=== PATIENT | male | born 2000 | race Caucasian/White ===

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

== ENCOUNTER 2021-04-01 21:48 | Emergency (ER) | payer OTHER, SELFPAY ==
[2020-05-20 07:36] VITALS: BMI 39.6
[2021-04-01 21:48] VITALS: BP 176/89; PULSE 76; RESP 16; TEMP 36.1; O2SAT 99; BMI 36.9
[2021-04-01 23:29] LABS: Absolute Lymphocyte Count 2.35 X10^3/uL (0.83-4.51); Absolute Neutrophil Count 7.4 X10^3/uL (2.0-7.7); Basophil# 0.03 X10^3/uL; Basophil% 0.3 % (0-1); Eosinophil# 0.22 X10^3/uL; Hematocrit 44.8 % (40-54); Hemoglobin 15.1 g/dL (13.0-16.5); Lymphocyte # 2.35 X10^3/ul (0.83-4.51); Lymphocyte % 21.5 % (19-41); Mean Corp Hgb Conc 33.7 g/dL (32-36); Mean Corpuscular Hgb 31.7 pg (27.0-32.0); Mean Corpuscular Volume 93.9 fL (80-94); Mean Platelet Vol. 10.4 fl (6.2-12.0); Monocyte# 0.89 X10^3/uL; Monocyte% 8.2 % (0-10); NRBC Flagged by Analyzer 0 % (0-5); Neutrophil % 67.7 % (47-70); Platelet Count 264 K/mm3 (150-450); RBC Distribution Width SD 41.9 fl (35.1-43.9); Red Blood Count 4.77 M/mm3 (4.6-6.2); White Blood Count 10.9 K/mm3 (4.4-11.0)
[2021-04-01 23:45] LABS: Anion Gap 6 (5-15); BUN 16 mg/dL (7-18); Calcium,Total 9.5 mg/dL (8.5-10.1); Chloride 104 mmol/L (98-107); Creatinine, Serum 1.33 mg/dL (0.70-1.30); EST Glomerular Filtration Rate 73 mL/min (>60); Est Glom Filt Rate - Afr Amer 88 mL/min (>60); Estimated Creatinine Clearance 100.96 ml/min; Glucose 101 mg/dL (74-106); Potassium 3.7 mmol/L (3.5-5.1); Sodium Level 140 mmol/L (136-145)
[2021-04-01 23:49] LABS: Lactic Acid 1.1 mmol/L (0.4-1.9)
--- NOTE | 2021-04-01 23:54 | EDS_ITS ---
HPI History of Present Illness Chief Complaint: Cellulitis Informant: patient and spouse/S.O. Onset/Context/Timing Onset: Yesterday Current Severity: Mild Maximum Severity: Mild Narrative Narrative: Patient presents secondary to concern for cellulitis of his right calf. Patient states he noted a sore red area there yesterday. This morning he outlined the area with a marking pen and tonight it has expanded beyond the marked lines. Patient states he has been treated for cellulitis twice in the past and did require IV antibiotics. He reports he did test positive for MRSA. He states the first time he was treated with just clindamycin and got well. The second time he was treated with clindamycin plus Keflex and got well. He denies fever or chills. No other constitutional symptoms. [facility] Medical History Asthma History of cellulitis Seasonal allergies Home Medications albuterol sulfate 90 mcg/actuation aerosol inhaler 2 puff INHALATION Q4H PRN #18 g 05/20/20 [Rx Last Taken Unknown] cetirizine 10 mg capsule 10 mg PO QDAY #30 cap 05/20/20 [Rx Last Taken Unknown] fluticasone furoate 200 mcg-vilanterol 25 mcg/dose inhalation powder 1 inh INHALATION QDAY #60 ea 05/20/20 [Rx Last Taken Unknown] fluticasone propionate 50 mcg/actuation nasal spray,suspension 2 spray INTRANASAL DAILY #16 g 05/20/20 [Rx Last Taken Unknown] cephalexin 500 mg PO Q6 #40 cap 04/02/21 [Rx Last Taken Unknown] clindamycin HCl 300 mg PO 4X/DAY #80 cap 04/02/21 [Rx Last Taken Unknown] Allergy/AdvReac Type Severity Reaction Status Date / Time No Known Allergies Allergy Verified 04/01/21 21:49 Family History Mother Asthma Grandmother Diabetes Grandfather Heart disease Social History Smoking Status: Never smoker second hand exposure: No alcohol intake: never substance use type: does not use caffeine: Yes what type of physical activity do you participate in: other frequency: 5-6 times per week ROS ROS ED Constitutional Constitutional ED: Denies chills or fever(s) Eyes Eyes: Denies change in vision ENT ENT ED: Denies sore throat Cardiovascular Cardiovascular: Denies chest pain Respiratory/Chest Respiratory/Chest: Denies cough or dyspnea Gastrointestinal Gastrointestinal: Denies abdominal pain, diarrhea, nausea or vomiting Genitourinary Genitourinary ED: Denies dysuria Musculoskeletal Musculoskeletal: Denies back pain Integumentary Reports other Details: Cellulitis right posterior calf Neurologic Neurologic: Denies headache(s) or weakness Psychiatric Psychiatric: Denies anxiety or depression Endocrine Endocrinology: Denies polydipsia or polyuria Allergic/Immunologic Allergic/Immunologic ED: Denies urticaria EXAM Physical Exam Const Vital Signs: 04/01/21 21:48 Temperature 96.9 F L Temperature Source Temporal Pulse Rate 76 Respiratory Rate 16 Blood Pressure 176/89 H Blood Pressure Mean 118 Pulse Ox 99 Positive well nourished and well developed General Appearance ED: well developed HEENT Reports normocephalic and head/scalp atraumatic Eyes PERRL and EOMs intact bilaterally Neck supple Chest Wall inspection of chest normal and palpation of chest normal Resp normal respiratory effort and clear to auscultation bilaterally Cardio regular rate and regular rhythm GI normal to inspection, nondistended, normoactive bowel sounds Palpation: soft Extremity Extremity Narrative: Area of erythema consistent with cellulitis in the posterio r right calf. Area is outlined with a surgical marker at this time. Area of erythema measures 9 cm in diameter. Neuro oriented x3 and no sensory deficits noted Sensorium / Orientation: alert Motor Exam: strength 5/5 throughout Psych mental status grossly normal Skin Skin Narrative: As above MDM MDM MDM Narrative Medical decision making narrative: Blood work, blood cultures were obtained. Area of erythema is outlined with a surgical marker. Patient is given a dose of IV vancomycin. Lab Data Attestation: I reviewed the patient's lab results. Labs: Laboratory Results - last 24 hr 04/01/21 04/01/21 04/01/21 23:05 23:05 23:05 WBC 10.9 RBC 4.77 Hgb 15.1 Hct 44.8 MCV 93.9 MCH 31.7 MCHC 33.7 RDW Std Deviation 41.9 RDW Coeff of Lisseth 12.0 Plt Count 264 MPV 10.4 Immature Gran % (Auto) 0.300 Neut % (Auto) 67.7 Lymph % (Auto) 21.5 Desha % (Auto) 8.2 Eos % (Auto) 2.0 Baso % (Auto) 0.3 Absolute Neuts (auto) 7.4 Absolute Lymphs (auto) 2.35 Nucleated RBC % 0 Sodium 140 Potassium 3.7 Chloride 104 Carbon Dioxide 30.0 Anion Gap 6 BUN 16 Creatinine 1.33 H Estim Creat Clear Calc 100.96 Est GFR (MDRD) Af Amer 88 Est GFR (MDRD) Non-Af 73 BUN/Creatinine Ratio 12.0 Glucose 101 Lactic Acid 1.1 Calcium 9.5 Treatment and Re-Evaluation Comments:: Repeat evaluation patient is resting comfortably. Blood work is unremarkable at this time. Blood cultures have been sent. Patient states his last infection was treated with clindamycin and Keflex and he will be treated with the same again. Prescriptions will be sent to the pharmacy for him. Return instructions have been provided. Discharge Plan Triage Chief Complaint: Cellulitis ED Provider: Gunjan Boyer Dx/Rx/DC Orders Clinical Impression: Cellulitis Instructions: Cellulitis Prescriptions: New clindamycin HCl 150 MG capsule 300 mg PO 4X/DAY Qty: 80 RF: 0 cephalexin 500 mg capsule 500 mg PO Q6 Qty: 40 RF: 0 No Action fluticasone propionate 50 mcg/actuation spray,suspension 2 spray INTRANASAL DAILY Qty: 16 RF: 11 Breo Ellipta 200-25 mcg/dose blister with device 1 inh INHALATION QDAY Qty: 60 RF: 11 Zyrtec 10 mg capsule 10 mg PO QDAY Qty: 30 RF: 11 albuterol sulfate [ProAir HFA] 90 mcg/actuation HFA aerosol inhaler 2 puff INHALATION Q4H PRN (Reason: shortness of breath or wheezing) Qty: 18 RF: 11 Stand Alone Forms: ED Work / School Excuse Primary Care Provider: Care Physician,No Primary Referrals: Solo Lewis MD [STAFF PHYSICIAN] - 1-2 Weeks Care Physician,No Primary [Primary Care Provider] - Disposition Disposition: Home, Self Care
[2021-04-02 00:21] VITALS: BP 150/70; PULSE 90; RESP 18; TEMP 37.2; O2SAT 97
[2021-04-02 02:29] VITALS: BP 145/78; PULSE 86; RESP 16; O2SAT 99
== END 2021-04-02 02:30 | disposition home or self-care (01) ==
PROVIDERS: Emergency Provider Emergency Medicine
DX: L03.115 Cellulitis of right lower limb (principal); J45.909 Unspecified asthma, uncomplicated; Z79.899 Other long term (current) drug therapy
CPT/HCPCS: 80048; 83605; 85025; 87040; 96365; 96366; 99283; J7040; J7050; A4216

== ENCOUNTER 2021-04-04 22:50 | Emergency (ER) | payer OTHER, SELFPAY ==
[2021-04-04 22:51] VITALS: BP 156/69; PULSE 70; RESP 16; TEMP 36.8; O2SAT 97; BMI 38.0
[2021-04-04 22:52] VITALS: BP 156/69; PULSE 70; RESP 16; TEMP 36.8; O2SAT 97
--- NOTE | 2021-04-04 23:17 | EX.ED.DYSGE1 ---
HPI History of Present Illness Chief Complaint: Cellulitis Informant: patient and spouse/S.O. Onset/Context/Timing Onset: Today Context: Sudden Onset Timing: Continuous Quality: Cellulitis posterior right leg/calf Current Severity: Mild Maximum Severity: Mild Worsened by: Nothing per patient. He states his been compliant with antibiotics Relieved by: Nothing Associated Symptoms Associated Symptoms: No associated symptoms Narrative Prior similar symptoms: Yes Recent Illness/Hospitalization: Yes (Patient was seen on and treated with cephalexin and clindamycin) [facility] Medical History Asthma History of cellulitis Seasonal allergies Home Medications albuterol sulfate 90 mcg/actuation aerosol inhaler 2 puff INHALATION Q4H PRN #18 g 05/20/20 [Rx Last Taken Unknown] cetirizine 10 mg capsule 10 mg PO QDAY #30 cap 05/20/20 [Rx Last Taken Unknown] fluticasone furoate 200 mcg-vilanterol 25 mcg/dose inhalation powder 1 inh INHALATION QDAY #60 ea 05/20/20 [Rx Last Taken Unknown] fluticasone propionate 50 mcg/actuation nasal spray,suspension 2 spray INTRANASAL DAILY #16 g 05/20/20 [Rx Last Taken Unknown] cephalexin 500 mg PO Q6 #40 cap 04/02/21 [Rx Last Taken Unknown] clindamycin HCl 300 mg PO 4X/DAY #80 cap 04/02/21 [Rx Last Taken Unknown] doxycycline monohydrate 100 mg PO BID #14 capsule 04/05/21 [Rx Last Taken Unknown] Allergy/AdvReac Type Severity Reaction Status Date / Time No Known Allergies Allergy Verified 04/01/21 21:49 Family History Mother Asthma Grandmother Diabetes Grandfather Heart disease Social History (Updated 04/04/21 @ 23:[address] Kyree Thornton MD) household members: significant other Smoking Status: Never smoker second hand exposure: No alcohol intake: never substance use type: does not use caffeine: Yes what type of physical activity do you participate in: other frequency: 5-6 times per week ROS ROS ED Constitutional Constitutional ED: Denies chills, fever(s), subjective, sweats or weight loss Eyes Eyes: Denies blurry vision or change in vision ENT ENT ED: Denies rhinorrhea or sore throat Cardiovascular Cardiovascular: Reports other Details: He denies atraumatic fever, heart murmur, SBE or being immune suppressed. ; Denies chest pain or palpitations Respiratory/Chest Respiratory/Chest: Denies cough or dyspnea Gastrointestinal Gastrointestinal: Denies nausea or vomiting Integumentary Reports rash; Denies abscess Neurologic Neurologic: Denies paresthesias or weakness Allergic/Immunologic Allergic/Immunologic ED: Denies mouth swelling, tongue swelling or urticaria EXAM Physical Exam Const Vital Signs: 04/04/21 22:51 04/04/21 22:52 Temperature 98.2 F 98.2 F Temperature Source Temporal Temporal Pulse Rate 70 70 Respiratory Rate 16 16 Blood Pressure 156/69 H 156/69 H Blood Pressure Mean 98 98 Pulse Ox 97 97 Oxygen Delivery Method Room Air Room Air Positive well nourished and well developed General Appearance ED: well developed and NAD HEENT Reports moist mucous membranes HEENT Narrative: Symmetric. Nares patent. Ears are normal. Eyes PERRL and EOMs intact bilaterally General Eye ED: Negative for pale conjunctiva or scleral icterus Neck no lymphadenopathy, supple and no JVD Chest Wall inspection of chest normal Resp normal respiratory effort and clear to auscultation bilaterally Cardio regular rate, S1 normal heart sound, S2 normal heart sound and no murmurs Extremity Negative for normal to inspection Extremity Narrative: There is cellulitis involving the right posterior leg. Patient states the rash was improving markedly. Since this morning it has spread and involve the entire posterior right leg. There is no fluctuance. There is no popliteal or inguinal lymphadenopathy. There is no induration. The area is slightly warm compared to uninvolved extremity. General Extremety ED: Negative for edema or tenderness General Extremity: Negative for edema Neuro oriented x3, CN's II-XII intact bilaterally and no sensory deficits noted Sensorium / Orientation: alert Psych mental status grossly normal Skin Rashes: rashes noted Erythematous warm blanching rash without induration or fluctuance. 15 Posterior right leg erythematous oval Yes soft dry nontender MDM MDM MDM Narrative Medical decision making narrative: Suspect person has MRSA and is resistant to clindamycin. Will obtain baseline blood work and reassess. Lab Data Attestation: I reviewed the patient's lab results. Lab results narrative: CBC and differential unremarkable. Electrolyte panel is unremarkable. Lactate is normal. 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 2 to 3% of meth resistant staph or his infections are resistant to clindamycin. Suspect since he initially improved this is the cause. Since he has no sirs criteria he is a candidate for appropriate outpatient therapy. Labs: Laboratory Results - last 24 hr 04/04/21 04/04/21 04/04/21 23:14 23:14 23:14 WBC 7.9 RBC 4.54 L Hgb 14.3 Hct 42.8 MCV 94.3 H MCH 31.5 MCHC 33.4 RDW Std Deviation 41.1 RDW Coeff of Lisseth 11.9 Plt Count 255 MPV 10.3 Immature Gran % (Auto) 1.400 H Neut % (Auto) 57.8 Lymph % (Auto) 28.2 [place] % (Auto) 9.9 Eos % (Auto) 2.3 Baso % (Auto) 0.4 Absolute Neuts (auto) 4.6 Absolute Lymphs (auto) 2.24 Nucleated RBC % 0 Sodium 140 Potassium 3.9 Chloride 105 Carbon Dioxide 29.0 Anion Gap 6 BUN 15 Creatinine 1.29 Estim Creat Clear Calc 101.09 Est GFR (MDRD) Af Amer 91 Est GFR (MDRD) Non-Af 76 BUN/Creatinine Ratio 11.6 Glucose 90 Lactic Acid 0.7 Calcium 9.2 Discharge Plan Triage Chief Complaint: Cellulitis ED Provider: Kyree Thornton Dx/Rx/DC Orders Clinical Impression: Cellulitis of right leg without foot Prescriptions: New doxycycline monohydrate 100 MG capsule 100 mg PO BID Qty: 14 RF: 0 No Action fluticasone propionate 50 mcg/actuation spray,suspension 2 spray INTRANASAL DAILY Qty: 16 RF: 11 Breo Ellipta 200-25 mcg/dose blister with device 1 inh INHALATION QDAY Qty: 60 RF: 11 Zyrtec 10 mg capsule 10 mg PO QDAY Qty: 30 RF: 11 albuterol sulfate [ProAir HFA] 90 mcg/actuation HFA aerosol inhaler 2 puff INHALATION Q4H PRN (Reason: shortness of breath or wheezing) Qty: 18 RF: 11 clindamycin HCl 150 MG capsule 300 mg PO 4X/DAY Qty: 80 RF: 0 cephalexin 500 mg capsule 500 mg PO Q6 Qty: 40 RF: 0 Primary Care Provider: Care Physician,No Primary Referrals: Solo Lewis MD [STAFF PHYSICIAN] - 2 Days for wound check Care Physician,No Primary [Primary Care Provider] - Disposition Disposition: Home, Self Care
[2021-04-04 23:37] LABS: Absolute Lymphocyte Count 2.24 X10^3/uL (0.83-4.51); Absolute Neutrophil Count 4.6 X10^3/uL (2.0-7.7); Basophil# 0.03 X10^3/uL; Basophil% 0.4 % (0-1); Eosinophil# 0.18 X10^3/uL; Eosinophils% 2.3 % (0-5); Hematocrit 42.8 % (40-54); Hemoglobin 14.3 g/dL (13.0-16.5); Lymphocyte # 2.24 X10^3/ul (0.83-4.51); Lymphocyte % 28.2 % (19-41); Mean Corp Hgb Conc 33.4 g/dL (32-36); Mean Corpuscular Hgb 31.5 pg (27.0-32.0); Mean Corpuscular Volume 94.3 fL (80-94); Mean Platelet Vol. 10.3 fl (6.2-12.0); Monocyte# 0.79 X10^3/uL; Monocyte% 9.9 % (0-10); NRBC Flagged by Analyzer 0 % (0-5); Neutrophil # 4.59 X10^3/uL (2.7-7.7); Neutrophil % 57.8 % (47-70); Platelet Count 255 K/mm3 (150-450); RBC Distribution Width CV 11.9 % (11.6-14.6); RBC Distribution Width SD 41.1 fl (35.1-43.9); Red Blood Count 4.54 M/mm3 (4.6-6.2); White Blood Count 7.9 K/mm3 (4.4-11.0)
[2021-04-04 23:47] LABS: Anion Gap 6 (5-15); BUN 15 mg/dL (7-18); BUN/Creat Ratio 11.6 RATIO (10-20); Calcium,Total 9.2 mg/dL (8.5-10.1); Chloride 105 mmol/L (98-107); Creatinine, Serum 1.29 mg/dL (0.70-1.30); EST Glomerular Filtration Rate 76 mL/min (>60); Est Glom Filt Rate - Afr Amer 91 mL/min (>60); Estimated Creatinine Clearance 101.09 ml/min; Glucose 90 mg/dL (74-106); Potassium 3.9 mmol/L (3.5-5.1); Sodium Level 140 mmol/L (136-145)
[2021-04-04 23:50] LABS: Lactic Acid 0.7 mmol/L (0.4-1.9)
[2021-04-05] MEDS: Doxycycline 100 MG CAPSULE PO (00:30)
[2021-04-05 00:40] VITALS: RESP 14
== END 2021-04-05 00:45 | disposition home or self-care (01) ==
PROVIDERS: Emergency Provider Emergency Medicine
DX: L03.115 Cellulitis of right lower limb (principal); J45.909 Unspecified asthma, uncomplicated; Z79.899 Other long term (current) drug therapy
CPT/HCPCS: 80048; 83605; 85025; 99284; A4216

== ENCOUNTER → 2022-05-24 | Outpatient (CLI) | payer OTHER, SELFPAY | END | disposition home or self-care (01) | LOC: LABSPEC 10:40 | PROVIDERS: Referring Provider Dermatology; Visit Provider Dermatology | DX: L05.91 Pilonidal cyst without abscess (principal) | CPT/HCPCS: 87070; 87077; 87186; 87205 ==

== ENCOUNTER 2022-10-06 09:27 | Day surgery (SDC) | payer OTHER, SELFPAY ==
[2022-10-06] VITALS (13 sets, daily range): BP systolic 104–140; BP diastolic 56–79; PULSE 73–88; RESP 16–20; TEMP 36.6–37.3; O2SAT 96–100; BMI 34.2
--- NOTE | 2022-10-06 10:08 | PCM.HP.STD ---
HPI - General HPI Narrative TYLOR ANDREA, is a 22 M who presents for left inguinal hernia repair. The patient was seen in June and there were no changes since then. He still complaining of left inguinal hernia. [facility] Medical History (Updated 09/29/22 @ 10:24 by Mamta Edwards) Alcohol use Anxiety Asthma Gastric reflux History of cellulitis History of IBS Non-smoker Pilonidal cyst Seasonal allergies Wears glasses Home Medications albuterol sulfate 90 mcg/actuation aerosol inhaler (ProAir HFA) 2 puff inhalation Q4H PRN shortness of breath or wheezing #18 grams 10/05/21 [Rx Last Taken Unknown] cetirizine 10 mg capsule (Zyrtec) 10 mg PO QDAY #30 caps 10/05/21 [Rx Last Taken Unknown] fluticasone furoate 200 mcg-vilanterol 25 mcg/dose inhalation powder (Breo Ellipta) 1 inh inhalation QDAY #60 ea 10/05/21 [Rx Last Taken Unknown] fluticasone propionate 50 mcg/actuation nasal spray,suspension 2 spray intranasal DAILY #16 grams 10/05/21 [Rx Last Taken Unknown] fluoxetine 10 mg capsule (Prozac) 20 mg PO DAILY 06/24/22 [History Last Taken Unknown] hydroxyzine HCl 25 mg tablet 25 mg PO DAILY PRN Anxiety 06/24/22 [History Last Taken Unknown] Allergy/AdvReac Type Severity Reaction Status Date / Time No Known Allergies Allergy Verified 09/29/22 10:16 Family History Mother Asthma Grandmother Diabetes Grandfather Heart disease Surgical History (Updated 09/29/22 @ 10:24 by Mamta Edwards) Hx of wisdom tooth extraction Social History household members: significant other Smoking Status: Never smoker second hand exposure: No alcohol intake: never substance use type: does not use caffeine: Yes what type of physical activity do you participate in: other frequency: 5-6 times per week ROS Constitutional Constitutional: Denies anorexia or fatigue Eyes Eyes: Denies blurry vision ENT HEENT: Denies abnormal hearing Cardiovascular Cardiovascular: Denies chest pain Respiratory/Chest Respiratory/Chest: Denies cough or dyspnea Gastrointestinal Gastrointestinal: Denies abdominal pain, nausea or vomiting Genitourinary Genitourinary: Denies change in urinary stream Musculoskeletal Musculoskeletal: Denies abnormal gait Integumentary Integumentary: Denies jaundice Neurologic Neurologic: Denies dizziness Psychiatric Psychiatric: Denies anxiety Physical Exam Const alert and oriented x3 HEENT normocephalic Eyes PERRL Resp normal respiratory effort and normal air movement Cardio regular rate and regular rhythm GI soft to palpation, non-tender and non-distended GI Narrative: Reducible left inguinal hernia Extremity normal to inspection Assessment & Plan Assessment/Plan (1) Left inguinal hernia: PLAN: The patient has a left inguinal hernia which is reducible.? I discussed robotic assisted laparoscopic inguinal hernia repair with mesh.? I discussed the procedure in detail as well as mesh placement.? I discussed the risks including but not limited to bleeding, infection, injury to underlying organs, injury to spermatic cord, chronic groin pain, recurrence of hernia.? Patient understands all the risks and is when to proceed.? If there is a hernia on the contralateral side the patient would like that repaired as well. Syed Lopez MD Pager: [facility] [address] [place] [address], [address] [place] [address] Office:
[2022-10-06] MEDS: Lactated Ringers 1,000 ML 15 ML IV ×2 (10:24→13:00)
[2022-10-06] MEDS: Cefazolin 2 GM in 0.9% Normal Saline 100 ML IV (10:55)
--- NOTE | 2022-10-06 12:23 | PCM.OPRPT ---
Report of Operation Date of Procedure: 10/06/22 Pre-Operative Diagnosis: Left inguinal hernia Post-Operative Diagnosis: Left inguinal hernia Surgery/Procedure Performed:: Robotic assisted laparoscopic left inguinal hernia repair with mesh Description of Procedure: Patient was brought back the operating room and general anesthesia was used. The abdomen was prepped and draped in usual sterile fashion. A midline incision was made superior to the umbilicus and deepened to the fascia which was elevated and a Veress needle was placed into the abdomen. Drop test was performed and was normal. Abdomen was insufflated 15 mmHg and the Veress needle was removed. Camera port was placed into the abdomen and then the camera was placed into the abdomen. There were no injuries from entry. Patient had a left indirect inguinal hernia with no hernia on the right. Next under direct visualization the camera ports placed in the left abdomen in the right abdomen and then the patient was placed in Trendelenburg position and the robot was docked. Using electrocautery scissors the peritoneum in the left inguinal region was incised. Dissection was carried inferiorly until the hernia sac was identified. Peritoneum was dissected free circumferentially. Next the hernia sac was lysed from its adhesions in the inguinal canal. Once the hernia sac was reduced dissection was carried posteriorly. Next a full piece of 12 x 15 cm ProGrip mesh was unfolded over the left inguinal region and placed over the hernia. There is good overlap on all sides. The peritoneum was then reapproximated using 3-0V lock suture. The peritoneum completely covered the mesh to the end of the procedure. The robot was then undocked and the abdomen was allowed to desufflate. The ports were removed. The incisions were injected with local anesthetic and closed with interrupted 4-0 Monocryl sutures. Steri-Strips and bandages were applied. Scrotum was checked and contain both testicles. Patient was then awoken and taken to PACU in stable condition and tolerated procedure well. Grafts/Implants Used: ProGrip mesh in the left inguinal region Admit VTE Documentation VTE Mechan Device Prophylaxis: SCD's
--- NOTE | 2022-10-06 12:29 | DCINST_ITS ---
Discharge Instructions Procedure Hernia Diet Discharge Diet: Light diet - advance as tolerated Activity Discharge Activity: May Not Drive (for 2-3 days or while taking narcotic pain meds.) and May Shower (with the bandage in place 1-2 days after surgery.) Lifting Restrictions: 20 pounds for 4 weeks. Additional Activity Instructions:: Climbing stairs is fine, walking is encouraged. Sitting in bed may be uncomfortable. Sitting up using your lateral muscles (sitting up sideways) is usually more comfortable. Do not drive, work heavy equipment of sign legal documents for 24 hours. If your hernia repair was an inguinal repair, you may have scrotal swelling, an ice pack and/or athletic support can provide more comfort. Pain medications may cause nausea, you should typically eat light foods as you take your pain medications. Pain medications may also cause constipation. If you have difficulty with this, discuss with your doctor. Dressing / Incision Call your doctor if your incision/area has: Continuous Slow Oozing, Sudden Increased Bleeding, Increased Pain/ Swelling, Increased Redness and Foul Smelling Discharge Call your doctor if you observe: Fever of 101 or Higher Suture Line Care: Avoid Pulling/Pushing and Avoid Pinching/Bending Remove Dressing in: 2 days (Remove clear bandages in 2 days, remove Steri-Strips in 7 to 10 days.) Cleanse incision/area with: Soap & Water Follow Up Care Please Follow Up With: Syed Lopez MD When: Please call to schedule 2 week follow up appointment. [phone] Test Results: Test results from this visit will be discussed in further detail at your follow- up appointment, if applicable. Discharge Plan Admission Attending Provider: Syed Lopez Primary Care Provider: Marlys Christianson Instructions Additional Instructions / Restrictions: Ibuprofen and Tylenol alternating for pain. Oxycodone for breakthrough. Discharge Orders/Prescriptions Prescriptions: New oxycodone 5 mg tablet 5 - 10 mg PO Q6H PRN (Reason: pain) 5 Days Qty: 10 0RF No Action albuterol sulfate [ProAir HFA] 90 mcg/actuation HFA aerosol inhaler 2 puff INHALATION Q4H PRN (Reason: shortness of breath or wheezing) Qty: 18 11RF Breo Ellipta 200-25 mcg/dose blister with device 1 inh INHALATION QDAY Qty: 60 11RF Rx Instructions: after inhalation, rinse mouth with water and spit out; do not swallow fluticasone propionate 50 mcg/actuation spray,suspension 2 spray INTRANASAL DAILY Qty: 16 11RF Zyrtec 10 mg capsule 10 mg PO QDAY Qty: 30 11RF fluoxetine [Prozac] 10 mg capsule 20 mg PO DAILY hydroxyzine HCl 25 mg tablet 25 mg PO DAILY PRN (Reason: Anxiety) Referrals / Follow Up: Marlys Christianson MD [Primary Care Provider] - Disposition Disposition (needs filled in before D/C Order can be placed): Home, Self Care
[2022-10-06] MEDS: Acetaminophen 325 MG Tablet 650 MG PO (14:36)
[2022-10-06] MEDS: Ondansetron 4 MG/2 ML Vial IM (14:43)
== END 2022-10-06 18:09 | disposition home or self-care (01) ==
LOC: SDC 09:27 → AC 09:28
PROVIDERS: PCP Family Medicine; Referring Provider Surgery; Visit Provider Surgery
PROC: 0YQ64ZZ Repair Left Inguinal Region, Percutaneous Endoscopic Approach (ICD-10-PCS; CPT 49650; principal; 2022-10-06 10:40)
DX: K40.90 Unilateral inguinal hernia, without obstruction or gangrene, not specified as recurrent (principal); J45.909 Unspecified asthma, uncomplicated; K21.9 Gastro-esophageal reflux disease without esophagitis
CPT/HCPCS: 49650; 00840; J7120; J2405

== ENCOUNTER → 2022-11-07 | Outpatient (CLI) | payer OTHER, SELFPAY | END | disposition home or self-care (01) | LOC: LABSPEC 10:16 | PROVIDERS: PCP Family Medicine; Referring Provider Dermatology; Visit Provider Dermatology | DX: L05.91 Pilonidal cyst without abscess (principal) | CPT/HCPCS: 87070; 87077; 87186; 87205 ==